=== PATIENT | female | born 1975 | race Caucasian/White ===

== ENCOUNTER 2018-11-04 15:49 | Inpatient (IN) ==
[2018-11-04] MEDS ORDERED: Succinylcholine Inj 200 MG/10 ML Vial ONE (15:51)
[2018-11-04] MEDS ORDERED: Etomidate Inj 20 MG/10 ML Ampul IV.PUSH ONE (15:51)
[2018-11-04] MEDS ORDERED: Propofol 1000 mg/100 ml Inj 1,000 MG/100 ML BOTTLE ONE (16:04)
[2018-11-04] MEDS ORDERED: Midazolam Inj 5 MG/ML 1 ML Vial ONE ×2 (16:04→16:14)
[2018-11-04] MEDS ORDERED: Diphtheria/Tetanus/Pertussis Vaccine Inj 0.5 ML Syringe IM ONE (16:09)
[2018-11-04] MEDS ORDERED: ceFAZolin 2 GM Premix Inj 2 GM/50 ML PIGGYBACK IV.SIG ONE (16:09)
[2018-11-04] MEDS ORDERED: fentaNYL 10 mcg/mL Premix Drip 2,500 MCG/250 ML BAG IV.SIG PRN ×2 (16:16→16:26)
[2018-11-04 16:24] LABS: Baso % (Auto) 0.4 % (0.0-2.0); Eos # (Auto) 0.1 th/mm3 (0.0-0.4); Eos % (Auto) 0.6 % (0.0-4.0); Hematocrit 39.3 % (35.0-46.0); Hemoglobin 13.9 gm/dL (11.6-15.3); Lymph # (Auto) 5.1 th/mm3 (1.0-4.8); Lymph % (Auto) 41.9 % (9.0-44.0); Mean Corpuscular HGB Conc 35.4 % (32.0-36.0); Mean Corpuscular Hemoglobin 37.1 pg (27.0-34.0); Mean Platelet Volume 7.2 fL (7.0-11.0); Mono # (Auto) 0.7 th/mm3 (0.0-0.9); Mono % (Auto) 5.5 % (0.0-8.0); Neut # (Auto) 6.3 th/mm3 (1.8-7.7); Neut % (Auto) 51.6 % (16.0-70.0); Platelet Count 320 th/mm3 (150-450); Red Blood Count 3.74 mil/mm3 (4.00-5.30); Red Cell Distribution Width 13.2 % (11.6-17.2); White Blood Count 12.2 th/mm3 (4.0-11.0)
[2018-11-04] MEDS ORDERED: Post-op Orders (for Pharmacy) OTHER ONE (16:24)
[2018-11-04] MEDS ORDERED: Naloxone Inj 0.4 MG/ML Vial IV.PUSH PRN (16:24)
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
[2018-11-04] MEDS ORDERED: Propofol 1000 mg/100 ml Inj 1,000 MG/100 ML BOTTLE IV.CONT PRN ×2 (16:26→17:21)
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
[2018-11-04 16:40] LABS: Activated Partial Thrombo Time 23.6 sec (23.4-31.7); Prothrombin Time 9.9 sec (9.8-11.6)
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
[2018-11-04] MEDS: Sod Chloride 0.9% Inj 1,000 ML IV.CONT SCH (17:07)
[2018-11-04] MEDS: Midazolam 100 MG/100 ML Inj 100 MG/100 ML BAG IV.CONT PRN (17:32)
[2018-11-04] MEDS: Pantoprazole Inj 40 MG Vial IV.PUSH SCH (17:33)
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
[2018-11-04] MEDS: Senna/Docusate Sodium 8.6/50 MG Tablet PO SCH (20:16)
[2018-11-05] MEDS: Sod Chloride 0.9% Inj 1,000 ML IV.CONT SCH ×2 (01:02→02:11)
[2018-11-05] MEDS: Midazolam 100 MG/100 ML Inj 100 MG/100 ML BAG IV.CONT PRN (01:02)
[2018-11-05 06:10] LABS: Baso % (Auto) 0.5 % (0.0-2.0); Eos # (Auto) 0.1 th/mm3 (0.0-0.4); Eos % (Auto) 0.9 % (0.0-4.0); Hematocrit 30.8 % (35.0-46.0); Lymph # (Auto) 2.4 th/mm3 (1.0-4.8); Lymph % (Auto) 25.6 % (9.0-44.0); Mean Corpuscular HGB Conc 35.8 % (32.0-36.0); Mean Corpuscular Hemoglobin 37.1 pg (27.0-34.0); Mean Corpuscular Volume 103.6 fL (80.0-100.0); Mean Platelet Volume 7.6 fL (7.0-11.0); Mono # (Auto) 0.6 th/mm3 (0.0-0.9); Mono % (Auto) 6.3 % (0.0-8.0); Neut # (Auto) 6.3 th/mm3 (1.8-7.7); Neut % (Auto) 66.7 % (16.0-70.0); Platelet Count 246 th/mm3 (150-450); Red Blood Count 2.98 mil/mm3 (4.00-5.30); Red Cell Distribution Width 12.7 % (11.6-17.2); White Blood Count 9.4 th/mm3 (4.0-11.0)
[2018-11-05 06:39] LABS: Anion Gap 9 meq/L (5-15); Blood Urea Nitrogen 12 mg/dL (7-18); Calcium 7.7 mg/dL (8.5-10.1); Carbon Dioxide 22.2 meq/L (21.0-32.0); Chloride 116 meq/L (98-107); Glomerular Filtration Rate Greater Than 89 mL/min (>89); Glucose,Random 79 mg/dL (74-106); Potassium 3.6 meq/L (3.5-5.1); Sodium 147 meq/L (136-145)
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
[2018-11-05 06:48] LABS: ABG Base Excess -3.6 mmol/L (-2-2); ABG PCO2 36 mmHg (38-42); ABG PO2 67 mmHg (61-120)
[2018-11-05] MEDS: Acetaminophen 325 MG Tablet PO PRN ×2 (08:31→20:57)
[2018-11-05] MEDS: Senna/Docusate Sodium 8.6/50 MG Tablet PO SCH ×2 (08:32→20:58)
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
[2018-11-05] MEDS ORDERED: diazePAM 5 MG Tablet PO SCH (10:00)
[2018-11-05] MEDS: Multivitamin Inj 10 ML, Thiamine Inj 100 MG, Folic Acid Inj 1 MG in Sodium Chlor 0.9% I... IV.SIG SCH (11:11)
[2018-11-05] MEDS: Enoxaparin Inj 40 MG/0.4 ML Syringe SQ SCH (11:29)
[2018-11-05] MEDS: diazePAM 5 MG Tablet PO SCH ×4 (11:30→20:59)
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
[2018-11-05] MEDS: Lidocaine 5% Patch T-DERMAL SCH (15:32)
[2018-11-05] MEDS: Pantoprazole Inj 40 MG Vial IV.PUSH SCH (16:59)
[2018-11-06 06:06] LABS: Baso % (Auto) 0.3 % (0.0-2.0); Eos # (Auto) 0.1 th/mm3 (0.0-0.4); Eos % (Auto) 1.4 % (0.0-4.0); Hematocrit 29.4 % (35.0-46.0); Hemoglobin 10.5 gm/dL (11.6-15.3); Lymph # (Auto) 1.8 th/mm3 (1.0-4.8); Mean Corpuscular HGB Conc 35.8 % (32.0-36.0); Mean Corpuscular Hemoglobin 37.7 pg (27.0-34.0); Mean Corpuscular Volume 105.5 fL (80.0-100.0); Mean Platelet Volume 7.4 fL (7.0-11.0); Mono # (Auto) 0.4 th/mm3 (0.0-0.9); Mono % (Auto) 6.3 % (0.0-8.0); Neut # (Auto) 4.4 th/mm3 (1.8-7.7); Platelet Count 216 th/mm3 (150-450); Red Blood Count 2.79 mil/mm3 (4.00-5.30); Red Cell Distribution Width 13.1 % (11.6-17.2); White Blood Count 6.7 th/mm3 (4.0-11.0)
[2018-11-06 06:32] LABS: Anion Gap 11 meq/L (5-15); Blood Urea Nitrogen 8 mg/dL (7-18); Calcium 8.6 mg/dL (8.5-10.1); Carbon Dioxide 21.1 meq/L (21.0-32.0); Chloride 108 meq/L (98-107); Glomerular Filtration Rate Greater Than 89 mL/min (>89); Glucose,Random 135 mg/dL (74-106); Potassium 3.3 meq/L (3.5-5.1); Sodium 140 meq/L (136-145)
[2018-11-06] MEDS: Enoxaparin Inj 40 MG/0.4 ML Syringe SQ SCH ×2 (07:27→08:03)
[2018-11-06] MEDS: Senna/Docusate Sodium 8.6/50 MG Tablet PO SCH ×3 (07:28→20:16)
[2018-11-06] MEDS: Lidocaine 5% Patch T-DERMAL SCH ×2 (07:29→08:03)
[2018-11-06] MEDS: Multivitamin Inj 10 ML, Thiamine Inj 100 MG, Folic Acid Inj 1 MG in Sodium Chlor 0.9% I... IV.SIG SCH ×2 (07:31→08:03)
[2018-11-06] MEDS: diazePAM 5 MG Tablet PO SCH ×3 (08:03→18:45)
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
[2018-11-06] MEDS: Pantoprazole Inj 40 MG Vial IV.PUSH SCH (17:35)
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
[2018-11-07 05:22] LABS: Baso % (Auto) 0.4 % (0.0-2.0); Eos # (Auto) 0.1 th/mm3 (0.0-0.4); Eos % (Auto) 1.2 % (0.0-4.0); Hematocrit 28.6 % (35.0-46.0); Lymph # (Auto) 1.8 th/mm3 (1.0-4.8); Lymph % (Auto) 28.6 % (9.0-44.0); Mean Corpuscular Hemoglobin 36.7 pg (27.0-34.0); Mean Corpuscular Volume 104.9 fL (80.0-100.0); Mean Platelet Volume 7.7 fL (7.0-11.0); Mono # (Auto) 0.4 th/mm3 (0.0-0.9); Neut # (Auto) 3.9 th/mm3 (1.8-7.7); Neut % (Auto) 63.8 % (16.0-70.0); Platelet Count 231 th/mm3 (150-450); Red Blood Count 2.73 mil/mm3 (4.00-5.30); Red Cell Distribution Width 12.9 % (11.6-17.2); White Blood Count 6.1 th/mm3 (4.0-11.0)
[2018-11-07 05:49] LABS: Anion Gap 9 meq/L (5-15); Blood Urea Nitrogen 10 mg/dL (7-18); Calcium 8.6 mg/dL (8.5-10.1); Carbon Dioxide 24.1 meq/L (21.0-32.0); Chloride 109 meq/L (98-107); Glomerular Filtration Rate Greater Than 89 mL/min (>89); Glucose,Random 93 mg/dL (74-106); Potassium 3.9 meq/L (3.5-5.1); Sodium 142 meq/L (136-145)
[2018-11-07 08:35] VITALS: TEMP 98.3
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
[2018-11-07] MEDS ORDERED: diazePAM 5 MG Tablet PO SCH (09:00)
[2018-11-07] MEDS: Enoxaparin Inj 40 MG/0.4 ML Syringe SQ SCH (09:04)
[2018-11-07] MEDS: Senna/Docusate Sodium 8.6/50 MG Tablet PO SCH (09:04)
[2018-11-07] MEDS: Lidocaine 5% Patch T-DERMAL SCH (09:04)
[2018-11-07] MEDS: Multivitamin Inj 10 ML, Thiamine Inj 100 MG, Folic Acid Inj 1 MG in Sodium Chlor 0.9% I... IV.SIG SCH (09:13)
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
[2018-11-07 12:38] VITALS: BP 143/81; PULSE 100; RESP 18; O2SAT 94
[2018-11-08] MEDS ORDERED: diazePAM 5 MG Tablet PO SCH (21:00)
== END 2018-11-07 15:15 | disposition home or self-care (01) | DRG 89 ==
LOC: NEPI 15:49 → EDBD 16:32 → NEDA 16:32 → N03 16:45 → N06 11-05 14:22
PROVIDERS: ADMIT Surgery; ATTEND Surgery
CPT/HCPCS: 31500; 36600; 70450; 71010; 71045; 71260; 72125; 72141; 72170; 73020; 73221; 73620; 74177; 80048; 80307; 82805; 85025; 85610; 85730; 86850; 86900; 86901; 90471; 90715; 90774; 90775; 90784; 94002; 94003; 94150; 94640; 94656; 94657; 94664; 94665; 96374; 96375; 97163; 97167; 97535; 99285; 99291; C8952; C9113; G0390; J0330; J0690; J1650; J2250; J2704; J3010; J3411; J7030; J7040; L0120; Q9967